=== PATIENT | female | born 1945 | race Caucasian/White ===

== ENCOUNTER 2016-12-31 20:29 | Inpatient (IN) | payer MEDICARE, OTHER ==
[~2016-12-31] VITALS: Ht 165.1 cm; Wt 50.7 kg
[2016-12-31 21:15] VITALS: BP 129/66; PULSE 75; RESP 18; TEMP 97.3; O2SAT 98
[2016-12-31] MEDS ORDERED: MAGNESIUM HYDROXIDE SUSP 30 ML CUP PO PRN (21:45)
[2016-12-31] MEDS ORDERED: ALUMINUM/MAGNESIUM/SIMETH 30 ML CUP PO PRN (21:45)
[2016-12-31] MEDS ORDERED: LORazepam 2 MG/ML VIAL - age > 65 yrs IM PRN (21:45)
[2017-01-01] MEDS: ACETAMINOPHEN 325 MG TAB PO PRN (02:10)
[2017-01-01] MEDS: LORazepam 0.5 MG TAB age > 65 yrs PO PRN ×2 (02:10→21:45)
[2017-01-01 04:53] VITALS: BP 127/68; PULSE 66; RESP 18; TEMP 98.5; O2SAT 95
[2017-01-01 07:26] LABS: ANION GAP 8 MEQ/L (5-15); BICARBONATE 31.1 MEQ/L (21.0-32.0); BLOOD UREA NITROGEN 17 MG/DL (7-18); CHLORIDE 106 MEQ/L (98-107); GLOMERULAR FILTRATION RATE 66 ML/MIN (>89); POTASSIUM 3.6 MEQ/L (3.5-5.1); SODIUM (NA) 145 MEQ/L (136-145)
[2017-01-01 07:28] LABS: LDL CHOLESTEROL 75 MG/DL (0-99)
[2017-01-01 07:59] LABS: HEMOGLOBIN A1a 1.2 %; HEMOGLOBIN A1b 0.7 %; HEMOGLOBIN Ao 85.8 %; HEMOGLOBIN LA1C 1.9 %; HEMOGLOBIN P3 3.7 %
[2017-01-01] MEDS ORDERED: NICOTINE 21 MG/24 HR PATCH T-DERMAL SCH (09:00)
--- NOTE | 2017-01-01 11:32 | HHI.HP ---
Provisional Diagnosis Admission Date December 31, 2016 at 21:10 [place] I. 1. Major depressive disorder, recurrent, severe without psychotic features 2. Mixed anxiety disorder 3. History of eating disorder 4. Rule-out posttraumatic stress disorder E[place] II. Deferred [place] V. GAF is 30 presently Certification of Person's Competence To Provide Express and Informed Consent I have personally examined Shayy Villalta , a person being served at [facility] on, January 01, 2017 11:32. Express and informed consent means consent voluntarily given in writing, by a competent person, after sufficient explanation and disclosure of the subject matter involved to enable the person to make a knowing and willful decision without any element of force, fraud, deceit, duress, or other form of constraint or coercion. This person is 18 years of age or older, is not now known to be incompetent to consent to treatment with a guardian advocate, and does not have a health care surrogate or proxy currently making medical treatment decisions. I have found this person to be one of the following: [x] Competent to provide express and informed consent, as defined above, for voluntary admission to this facility and is competent to provide express and informed consent for treatment. He/she has the consistent capacity to make well reasoned, willful, and knowing decisions concerning his or her medical or mental health treatment. The person fully and consistently understands the purpose of the admission for examination/placement and is fully capable of personally exercising all rights assured under [place] Incompetent to provide express and informed consent to voluntary admission, and this is incompetent to provide express and informed consent to treatment. The person must be transferred to involuntary status and a petition for a guardian advocate filed with the Circuit Court. [] Refusing to provide express and informed consent to voluntary admission but is competent to provide express and informed consent for treatment. The person must be discharged or transferred to involuntary status. Form shall be completed within 24 hours of a person's arrival at the receiving facility and filed in the clinical record of each person: 1. Admitted on a voluntary basis 2. Permitted to provide express and informed consent to his/her own treatment 3. Allowed to transfer from involuntary to voluntary status 4. Prior to permitting a person to consent to his or her own treatment after having been previously found incompetent to consent to treatment. History of Present Illness Capacity: Has Capacity HPI Ms. Pawan is a 71 year-old female with a history of depression and anxiety who presented initially to [facility] complaining of suicidal ideation with plan to overdose on pills. Documentation from [facility] reviewed, and it appears that the patient presented there with her therapist after the therapist noted worsening depression with active planned overdose. She was placed under a Byrnes acted [place]. Reviewing our own electronic medical record, it appears this is patient's first visit to [place]. Patient seen and examined with counselor, Libby. Chart reviewed. Case discussed with nurse on the inpatient psychiatric unit. On my examination today , the patient presents as dysphoric and faultfinding but psychologically minded. She says that she has been feeling increasingly depressed over the last several months. Stressors include functional limitation, most particularly from a knee replacement that she had 3 years ago. She endorses chronically poor sleep, feelings of hopelessness and helplessness and does admit to recent suicidal ideation. She reports that she is currently ambivalent about completing suicide but cannot contract for safety. She notes that her psychiatrist has been adjusting medications, but the patient is quite concerned about the possibility of weight gain for medications given her history of bulimia. She denies any hypomanic or manic symptoms at this time. I can elicit no prior history consistent with haroon or hypomania. She denies any audiovisual hallucinations and I can elicit no delusional beliefs. She does allude to history of childhood trauma, which she says she has only disclosed to 1 person, a psychotherapist now , and the patient describes some hyperarousal and reexperiencing related to this traumatic history. Patient also describes a high level of anxiety, chiefly generalized but with an overall mixed picture. The remainder of the psychiatric ROS is negative. Past psychiatric history: The patient reports a history of major depression, anxiety and bulimia. She currently follows with a psychiatrist, a Dr. Marquis , whom she last saw in November. She was apparently tapering her Cymbalta with plans to replaced with Wellbutrin. She also follows with a psychotherapist, Sadie Mccarthy, with whom she has a good rapport despite their having had only 6 sessions. She reports an extensive history of psychotherapy since her 20s. She bemoans the mosque of split treatment and finally remembers the day when the psychiatrist handled both medication management and psychotherapy. She denies any history of psychiatric admissions. She does admit to a history of suicide attempts in her 20s by overdose. She denies any history of nonsuicidal self-injurious behavior. Besides the Wellbutrin and Cymbalta, the patient has been on Lexapro and amitriptyline briefly in the past. She cannot recall other medication trials. With the patient's permission, I obtained collateral from patient's psychotherapist, Sadie Mccarthy, at [phone]. Ms. Mccarthy assesses patient's suicide risk as "extremely high" and notes that the patient has confided in her that she has been hoarding pills in order to overdose and has been composing her own obituary. She notes that the patient will often refuse to take medications for fear of weight gain side effects. She worries the patient has been abusing her Ambien. Review of Systems Except as stated in HPI: all other systems reviewed are Neg Past Psych History Psychological trauma history Patient alludes to a history of childhood trauma but declines to discuss it in any detail Violence risk - others (6 mos) Lower imminent risk. No known history of violence. No mental illness process that might confer risk for violence. No homicidal ideation at this time. Violence risk - self (6 mos) Elevated. Patient currently ambivalent about suicide. Therapist informs me that the patient has been making plans in furtherance of a suicide attempt. Patient has a history of suicide attempts in the past. She is presently quite depressed. Substance Abuse History Drugs/Alcohol past 12 months Patient denies any history of abuse of drugs or alcohol. Past Family Social History Coded Allergies: Demerol (Verified Allergy, Unknown, 12/31/16) Sulfa (Verified Allergy, Unknown, 12/31/16) Past Medical History Includes a history of knee replacement 3 years ago, colon resection 9 years ago and esophageal spasm one year ago. Current Medications Medications (Trade) Dose Ordered Sig/Jacqui Route Start Time Stop Time Status Last Admin (Ativan) 0.5 mg Q12H PRN PO 12/31/16 21:45 01/01/17 02:10 (Ativan Inj) 0.5 mg Q12H PRN IM 12/31/16 21:45 (Tylenol) 650 mg Q4H PRN PO 12/31/16 21:45 01/01/17 02:10 (Milk Of Magnesia Liq) 30 ml DAILY PRN PO 12/31/16 21:45 (Mag-Al Plus Susp Liq) 30 ml Q6H PRN PO 12/31/16 21:45 (Habitrol 21 Mg Patch.24 Hr) 1 patch DAILY T-DERMAL 01/01/17 09:00 Miscellaneous Information 1 HS T-DERMAL 01/01/17 21:00 Family History Patient denies any family history of serious mental illness, substance use disorder or suicide. Social History Patient reports that she moved from [place] 6 years ago. She lives with her second , Akhil of over 20 years. She does note that the marriage has been somewhat salina lately and she is thinking of leaving him. 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 Patient has no children of her own. She denies any or legal history. She thinks that Akhil may have had some guns in the past, but she doesn't know where they're at. She was raised in the [employer]ai J[employer] malini although she is now secular. Patient's Strengths (min. 2) In a monitored setting. Verbally fluent. Physical Exam Physical examination was completed at outside hospital. On my examination today , I find a thin, well-developed female in no acute physical distress. No motor abnormalities noted. Laboratories and vitals signs reviewed: Vital Signs Vital Signs Date Time Temp Pulse Resp B/P Pulse Ox O2 Delivery O2 Flow Rate FiO2 01/01/17 04:53 98.5 66 18 127/68 95 Lab Results Laboratories from outside hospital reviewed: CBC unremarkable. Alcohol level undetectable. BMP unremarkable. LFTs unremarkable. Urinalysis bland. Urine drug screen negative. TSH 1.6, within normal limits. Mental Status Examination Patient is casually dressed. She is well groomed. She is awake and alert and oriented 3. She is able to spell the word world forwards and backwards. She is able to name 2 items and repeat a phrase. She is able to interpret proverbs and can name the last 4 presidents. Her registration is 3 out of 3 and her recall is 3 out of 3 at 5 minutes. Speech is within normal limits for rate, tone and volume. Language and fund of knowledge seem above average. Mood is depressed and affect is restricted and consistent with stated mood. Thought process linear. No loosening of associations. No evident delusions. Denies audiovisual hallucinations. Ambivalent regarding ongoing suicidality. No reported urge to hurt herself on the inpatient psychiatric unit. No homicidal ideation. Insight and judgment are fair presently. Assessment & Plan Problem List: (1) Major depressive disorder ICD Code: F32.9 (2) Other mixed anxiety disorders ICD Code: F41.3 (3) History of bulimia ICD Code: Z86.59 Assessment & Plan This is a 71-year-old female with psychiatric history as detailed above who presents in transfer from outside hospital under a Byrnes act. Patient has a history of major depression and on my examination today appears to be experiencing a severe exacerbation of his illness without psychotic features. She does have comorbid anxiety issues as well as a history of eating disorder which reportedly impacts her compliance with psychotropic medications. Given the ongoing safety concerns, especially as related to me by her psychotherapist, the patient certainly requires psychiatric admission at this time for safety, observation and stabilization. Admit inpatient. Voluntary status. Discontinue Wellbutrin and replace with Remeron 15 mg at bedtime. I have cautioned the patient that there is the potential for weight gain associated with this medication as part of a discussion of the risks and benefits, but I have highlighted that it also may help with mood and help with sleep, and the patient is agreeable to giving this medication a try. Low-dose Ativan as needed for anxiety. I will also place the patient on a CIWA scale with Ativan for the management of any GABAergic withdrawal as therapist has raised concerns that the patient is abusing her zolpidem. Consult to the dietitian as the patient has special food preferences/ needs related to her history of GI surgery, and I did discuss the case briefly with the dietitian prior to her visit with the patient. Vitals every shift. Counselor to see and obtain collateral from patient's . Disposition planning. Estimated length of stay: 7-9 days. Discharge Planning Pending psychiatric stabilization. One possible disposition plan might be to residential treatment facility for further stabilization once the acute crisis has passed. Request HC Surrog/Guard Advoc?: No Problem Qualifiers (1) Major depressive disorder: Qualified Code: F33.2 - Severe episode of recurrent major depressive disorder, without psychotic features Fabrice Raygoza MD January 01, 2017 11:32
[2017-01-01] MEDS ORDERED: LORazepam 2 MG/ML VIAL IV PUSH PRN ×4 (12:15)
[2017-01-01] MEDS ORDERED: FLUMAZENIL 0.5 MG/5 ML VIAL IV PUSH PRN (12:15)
[2017-01-01] MEDS ORDERED: LORazepam 1 MG TAB PO PRN (12:15)
[2017-01-01] MEDS ORDERED: LORazepam 2 MG TAB PO PRN (12:15)
[2017-01-01 16:35] VITALS: BP 115/58; PULSE 72; RESP 17; TEMP 97.7; O2SAT 98
[2017-01-01] MEDS ORDERED: REMOVE OLD NICOTINE PATCH T-DERMAL SCH (21:00)
[2017-01-01] MEDS ORDERED: MIRTAZAPINE ODT 15 MG TAB PO SCH (21:00)
[2017-01-02 05:24] VITALS: BP 114/59; PULSE 68; RESP 18; TEMP 98.3; O2SAT 96
--- NOTE | 2017-01-02 13:41 | HHI.PYPN ---
Subjective Remarks Patient seen and examined. Chart reviewed. Case discussed with nursing staff who reports patient is somewhat faultfinding but otherwise has been no behavioral problem. For me today, the patient remains fairly dysphoric. Neurotic and obsessive compulsive personality traits are noted. She says that she is feeling "lousy" and attributes this to the Remeron she received last night on the one hand and the milieu of the unit on the other. Despite this, she remains resistant to moving to the 2600 unit, which would likely be more appropriate for this patient. 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 She wishes to be left alone to read. No active SI voiced. Reports that the Remeron made her dizzy and gave her dry mouth. She does not wish to continue this agent. Review of Systems ROS Limitations: Poor Historian Except as stated in HPI: all other systems reviewed are Neg Objective Alert: Yes [place]: Person, Place, Date, Situation Mood: Other ("Lousy") Affect: Restricted Memory Intact: Comment (Intact on clinical exam) Hallucinations: Other (No AVH) Delusions: No Delusion Type: Other (No delusions) Suicidal: Ideation (No SI) Homicidal: Ideation (No HI) Insight/Judgment Poor Remarks No abnormal motor movements noted. TP perseverative; faultfinding and grudge- holding. Speech wnl for rate, tone, volume. Labs Labs reviewed. Vitals/IOs Vital Signs Date Time Temp Pulse Resp B/P Pulse Ox O2 Delivery O2 Flow Rate FiO2 01/02/17 05:24 98.3 68 18 114/59 96 Intake and Output 01/01/17 01/01/17 01/02/17 08:00 16:00 00:00 Intake Total 240 ml 120 ml 1200 ml Balance 240 ml 120 ml 1200 ml Assessment & Plan Problem List: (1) Major depressive disorder ICD Code: F32.9 (2) Other mixed anxiety disorders ICD Code: F41.3 (3) History of bulimia ICD Code: Z86.59 Assessment & Plan Discontinue Remeron. Patient reports a history of brief trial of Lexapro, which was apparently well tolerated but not continued long enough to assess for efficacy. We review the risks and benefits of Lexapro, and the patient agrees to a trial. Discontinue Remeron and start Lexapro 10 mg daily. Continue other medications and care as ordered. I do think that the patient is more appropriate for the milieu of the 2600 unit and have ordered her transfer there. Justification for Cont. Inpt. Monitoring for impairments in safety. Medication changes and process. High risk for decompensation in a restrictive environment. Discharge Planning Pending psychiatric stabilization. I have updated the counselor on the 2600 regarding patient's discharge planning needs. Request HC Surrog/Guard Advoc?: No Problem Qualifiers (1) Major depressive disorder: Qualified Code: F33.2 - Severe episode of recurrent major depressive disorder, without psychotic features Fabrice Raygoza MD January 02, 2017 13:41
[2017-01-02] MEDS: ACETAMINOPHEN 325 MG TAB PO PRN ×2 (14:13→20:30)
[2017-01-02 20:14] VITALS: BP_SYST 122; BP_SYST 134; BP_DIAS 66; PULSE 78; PULSE 86; RESP 17; RESP 18; TEMP 97.7; TEMP 98.1; O2SAT 86
[2017-01-03 06:21] VITALS: BP 144/80; PULSE 72; RESP 16; TEMP 98; O2SAT 98
[2017-01-03] MEDS ORDERED: ESCITALOPRAM OXALATE 10 MG TAB PO SCH (09:00)
[2017-01-03] MEDS: ACETAMINOPHEN 325 MG TAB PO PRN (10:36)
[2017-01-03 10:52] VITALS: BP 110/53; PULSE 88; RESP 16; TEMP 98.1
--- NOTE | 2017-01-03 13:27 | HHI.PYPN ---
Subjective Remarks Patient very unhappy here and complaints regarding the system of care. Also complaining the Lexapro is giving her a tremendous headache and that the Remeron did not sit well with her. This physician recommended she go back to Wellbutrin and eventually to a higher dose of Wellbutrin. Patient agrees. Review of Systems ROS Limitations: Poor Historian Objective Alert: Yes [place]: Person, Place, Date, Situation Mood: Other ("Lousy") Affect: Restricted Memory Intact: Comment (Intact on clinical exam) Hallucinations: Other (No AVH) Delusions: No Delusion Type: Other (No delusions) Suicidal: Ideation (No SI) Homicidal: Ideation (No HI) Insight/Judgment Impaired Vitals/IOs Vital Signs Date Time Temp Pulse Resp B/P Pulse Ox O2 Delivery O2 Flow Rate FiO2 01/03/17 10:52 98.1 88 16 110/53 01/03/17 06:21 98 Intake and Output 01/02/17 01/02/17 01/03/17 08:00 16:00 00:00 Intake Total 240 ml 240 ml Balance 240 ml 240 ml Assessment & Plan Problem List: (1) Major depressive disorder ICD Code: F32.9 (2) Other mixed anxiety disorders ICD Code: F41.3 (3) History of bulimia ICD Code: Z86.59 Assessment & Plan Estimated LOS: 3 days change medication to Wellbutrin and allow it to work over the weekend. Discontinue Lexapro. Justification for Cont. Inpt. Suicidal thinking. Request HC Surrog/Guard Advoc?: No Problem Qualifiers (1) Major depressive disorder: Qualified Code: F33.2 - Severe episode of recurrent major depressive disorder, without psychotic features Josué Zelaya MD January 03, 2017 13:27
[2017-01-03 18:43] VITALS: BP 137/58; PULSE 76; RESP 18; TEMP 98.1; O2SAT 96
[2017-01-03] MEDS: LORazepam 0.5 MG TAB age > 65 yrs PO PRN (20:58)
[2017-01-04 05:06] VITALS: BP 140/71; PULSE 69; RESP 16; TEMP 97.8; O2SAT 97
[2017-01-04] MEDS: buPROPion HCL 150 MG EXTENDED RELEASE TAB PO SCH (08:07)
[2017-01-04] MEDS: ACETAMINOPHEN 325 MG TAB PO PRN ×2 (09:15→14:16)
--- NOTE | 2017-01-04 15:02 | HHI.PYPN ---
Subjective Remarks Patient is seen and case discussed with nursing. Patient is pleasant and cooperative with exam. Remains depressed but says her suicidal ideation is less frequent. Perseverative on various medication choices. Had a productive visit with her . Says sleep is episodic and she is eating well Objective Alert: Yes [place]: Person, Place, Date, Situation Mood: Depressed Affect: Restricted Memory Intact: Comment (Intact on clinical exam) Hallucinations: Other (No AVH) Delusions: No Delusion Type: Other (No delusions) Suicidal: Ideation (No SI) Homicidal: Ideation (No HI) Insight/Judgment Fair Vitals/IOs Vital Signs Date Time Temp Pulse Resp B/P Pulse Ox O2 Delivery O2 Flow Rate FiO2 01/04/17 05:06 97.8 69 16 140/71 97 Assessment & Plan Problem List: (1) Major depressive disorder ICD Code: F32.9 (2) Other mixed anxiety disorders ICD Code: F41.3 (3) History of bulimia ICD Code: Z86.59 Assessment & Plan Continue current treatment plan Justification for Cont. Inpt. Patient will decompensate in a less restrictive setting Request HC Surrog/Guard Advoc?: No Problem Qualifiers (1) Major depressive disorder: Qualified Code: F33.2 - Severe episode of recurrent major depressive disorder, without psychotic features Enrique Baez DO January 04, 2017 15:02
[2017-01-04 17:49] VITALS: BP 115/54; PULSE 82; RESP 18; TEMP 97.7; O2SAT 96
[2017-01-04] MEDS: LORazepam 0.5 MG TAB age > 65 yrs PO PRN (21:50)
[2017-01-05 05:33] VITALS: BP 115/72; PULSE 71; RESP 17; TEMP 98.4; O2SAT 96
[2017-01-05] MEDS: buPROPion HCL 150 MG EXTENDED RELEASE TAB PO SCH (09:19)
[2017-01-05] MEDS: LORazepam 0.5 MG TAB age > 65 yrs PO PRN ×2 (09:42→21:22)
[2017-01-05] MEDS: ACETAMINOPHEN 325 MG TAB PO PRN ×2 (09:42→21:22)
--- NOTE | 2017-01-05 13:33 | HHI.PYPN ---
Subjective Remarks Patient was seen and case discussed with nursing. Patient is pleasant and cooperative with exam. Had a productive visit from her . Is asking about discharge and psychoeducation was done for her reasons for admission. Says that she feels bored and uncomfortable on this unit and it is not productive to her mental health. Denies suicidal ideation intent or plan Objective Alert: Yes [place]: Person, Place, Date, Situation Mood: Depressed Affect: Blunted Memory Intact: Comment (Intact on clinical exam) Hallucinations: Other (No AVH) Delusions: No Delusion Type: Other (No delusions) Suicidal: Ideation (No SI) Homicidal: Ideation (No HI) Insight/Judgment Fair Vitals/IOs Vital Signs Date Time Temp Pulse Resp B/P Pulse Ox O2 Delivery O2 Flow Rate FiO2 01/05/17 05:33 98.4 71 17 115/72 96 Assessment & Plan Problem List: (1) Major depressive disorder ICD Code: F32.9 (2) Other mixed anxiety disorders ICD Code: F41.3 (3) History of bulimia ICD Code: Z86.59 Assessment & Plan Continue current treatment plan Justification for Cont. Inpt. Patient will decompensate in a less restrictive setting Request HC Surrog/Guard Advoc?: No Problem Qualifiers (1) Major depressive disorder: Qualified Code: F33.2 - Severe episode of recurrent major depressive disorder, without psychotic features Enrique Baez DO January 05, 2017 13:33
[2017-01-05 20:00] VITALS: BP 108/55; PULSE 90; RESP 16; TEMP 97.3; O2SAT 97
[2017-01-06 05:51] VITALS: BP 104/68; PULSE 73; RESP 16; TEMP 95.9; O2SAT 96
[2017-01-06] MEDS: ACETAMINOPHEN 325 MG TAB PO PRN (09:15)
[2017-01-06] MEDS: buPROPion HCL 150 MG EXTENDED RELEASE TAB PO SCH (09:28)
--- NOTE | 2017-01-06 11:22 | HHI.DS ---
Psychiatry Discharge Summary Inpatient Psychiatric care?: Yes Advance Directive: Yes Reason Not Provided: patient has one at home Mental Health AdvanceDirective: No Health Care Proxy: No Admission Admission Date December 31, 2016 at 21:10 Admission Diagnosis: (1) Major depressive disorder ICD Code: F32.9 Brief History Ms. Villalta is a 71 year-old female with a history of depression and anxiety who presented initially to [facility] complaining of suicidal ideation with plan to overdose on pills. Documentation from [facility] reviewed, and it appears that the patient presented there with her therapist after the therapist noted worsening depression with active planned overdose. She was placed under a [facility] [place]. Reviewing our own electronic medical record, it appears this is patient's first visit to [place]. Patient seen and examined with counselor, Libby. Chart reviewed. Case discussed with nurse on the inpatient psychiatric unit. On my examination today , the patient presents as dysphoric and faultfinding but psychologically minded. She says that she has been feeling increasingly depressed over the last several months. Stressors include functional limitation, most particularly from a knee replacement that she had 3 years ago. She endorses chronically poor sleep, feelings of hopelessness and helplessness and does admit to recent suicidal ideation. She reports that she is currently ambivalent about completing suicide but cannot contract for safety. She notes that her psychiatrist has been adjusting medications, but the patient is quite concerned about the possibility of weight gain for medications given her history of bulimia. She denies any hypomanic or manic symptoms at this time. I can elicit no prior history consistent with haroon or hypomania. She denies any audiovisual hallucinations and I can elicit no delusional beliefs. She does allude to history of childhood trauma, which she says she has only disclosed to 1 person, a psychotherapist now , and the patient describes some hyperarousal and reexperiencing related to this traumatic history. Patient also describes a high level of anxiety, chiefly generalized but with an overall mixed picture. The remainder of the psychiatric ROS is negative. Past psychiatric history: The patient reports a history of major depression, anxiety and bulimia. She currently follows with a psychiatrist, kelley Marquis , whom she last saw in November. She was apparently tapering her Cymbalta with plans to replaced with Wellbutrin. She also follows with a psychotherapist, Sadie Mccarthy, with whom she has a good rapport despite their having had only 6 sessions. She reports an extensive history of psychotherapy since her 20s. She bemoans the faith of split treatment and finally remembers the day when the psychiatrist handled both medication management and psychotherapy. She denies any history of psychiatric admissions. She does admit to a history of suicide attempts in her 20s by overdose. She denies any history of nonsuicidal self-injurious behavior. Besides the Wellbutrin and Cymbalta, the patient has been on Lexapro and amitriptyline briefly in the past. She cannot recall other medication trials. With the patient's permission, I obtained collateral from patient's psychotherapist, Sadie Mccarthy, at [phone]. Ms. Mccarthy assesses patient's suicide risk as "extremely high" and notes that the patient has confided in her that she has been hoarding pills in order to overdose and has been composing her own obituary. She notes that the patient will often refuse to take medications for fear of weight gain side effects. She worries the patient has been abusing her Ambien. Tobacco Use In Past 30 Days: No Tobacco Past 30 Days Alcohol Use: 2-4 Times Per Month Hospital Course Patient participated in individual and group therapies. No procedures were performed. At the time of discharge she had no suicidal or homicidal ideation, plan or intention. She verbally contracted for safety. Her cognition was intact. She had reached maximum benefit from this hospitalization. However, the patient was noted to be very negative on approached by this physician and hospital staff, complaining that no one had adequately changed her disposition. She was noted to be much more social and pleasant when she was unaware of being observed by staff. Results Blood Pressure 104 / 68 Vital Signs Date Time Temp Pulse Resp B/P Pulse Ox O2 Delivery O2 Flow Rate FiO2 01/06/17 05:51 95.9 73 16 104/68 96 None pending Summary of Procedures None Pending results at discharge: No Medications # of Antipsychotic meds at D/C: 0 Approp Antipsych med options 1 - Minimum of three failed multiple trials of monotherapy. 2 - Documented plan to taper to monotherapy due to previous use of multiple meds OR cross-taper in progress at D/C. 3 - Documentation of augmentation of Clozapine. 4 - Justification other than those listed in allowable values 1-3, document here : Discharge Discharge Date: January 06, 2017 Discharge Diagnosis: (1) Major depressive disorder Diagnosis: Principal ICD Code: F32.9 Mental Status Exam at Disch No suicidal or homicidal ideation, plan or intent. Cognition intact. No psychotic symptoms. Verbally mary for safety. Pt Condition on Discharge: Stable Discharge Disposition: Discharge Home Discharge Instructions Diet Instructions: As Tolerated, No Restrictions Activities you can perform: Regular-No Restrictions Discharge Time <= 30 minutes Discharge/Advance Care Plan Health Problems: (1) Major depressive disorder (2) Other mixed anxiety disorders (3) History of bulimia Goals to promote your health * To prevent worsening of your condition and complications * To maintain your health at the optimal level Directions to meet your goals Take your medications as prescribed Follow your dietary instruction Follow activity as directed Keep your appointments as scheduled Take your immunizations and boosters as scheduled If your symptoms worsen call your PCP, if no PCP go to Urgent Care Center or Emergency Room For 24/03 questions related to your inpatient stay or results of tests pending at discharge, please contact Dr. Josué Zelaya at Smoking is Dangerous to Your Health. Avoid second hand smoking Problem Qualifiers (1) Major depressive disorder: Qualified Code: F33.2 - Severe episode of recurrent major depressive disorder, without psychotic features Josué Zelaya MD January 06, 2017 11:22
[2017-01-06] MEDS ORDERED: BUPR150XL PO (11:23)
== END 2017-01-06 13:10 | disposition home or self-care (01) | DRG 885 ==
LOC: H250 21:10 → H260 01-02 13:40
PROVIDERS: ADMIT Psychiatry & Neurology Psychiatry; ATTEND Psychiatry & Neurology Psychiatry
DX: F33.2 Major depressive disorder, recurrent severe without psychotic features (principal); R45.851 Suicidal ideations; F41.9 Anxiety disorder, unspecified; Z86.59 Personal history of other mental and behavioral disorders; F43.10 Post-traumatic stress disorder, unspecified; Z96.659 Presence of unspecified artificial knee joint; Z91.5 Personal history of self-harm; F60.5 Obsessive-compulsive personality disorder; G44.40 Drug-induced headache, not elsewhere classified, not intractable; T43.225A Adverse effect of selective serotonin reuptake inhibitors, initial encounter; Y92.239 Unspecified place in hospital as the place of occurrence of the external cause
CPT/HCPCS: 80048; 80061; 83036